=== PATIENT | male | born 1950 | race Caucasian/White ===

== ENCOUNTER 2016-12-17 09:46 | Emergency (ER) | payer OTHER ==
[2016-12-17 10:00] VITALS: BP 146/101; PULSE 78; TEMP 97.6; BMI 21.2
[2016-12-17] MEDS ORDERED: OXYCODONE/APAP 5/325MG COMBO TABLET PO ONE (10:29)
--- NOTE | 2016-12-17 10:36 | PDOC ---
History of Present Illness - General Chief Complaint: Pain Stated Complaint: PAIN TO EXTREMITIES, BACK Time Seen by Provider: 12/17/16 10:01 History Source: Patient Exam Limitations: No Limitations - History of Present Illness Initial Comments: 12/17/16 14:00 CHIEF COMPLAINT: Shingles, pain HISTORY OF PRESENT ILLNESS: Patient is a 66-year-old male states that he was diagnosed with shingles to right forearm placed on valacyclovir and meloxicam however patient still with pain. Denies any fever, no chest pain or shortness of breath. 12/17/16 14:03 Severity: moderate Associated Symptoms: denies: fever/chills Past History - Past Medical History Allergies/Adverse Reactions: Allergies Allergy/AdvReac Type Severity Reaction Status Date / Time aspirin Allergy Verified 12/17/16 09:50 Home Medications: Ambulatory Orders Amlodipine Besylate [Norvasc -] 5 mg PO DAILY 06/26/16 Aspirin [ASA -] 81 mg PO DAILY 06/26/16 Clopidogrel Bisulfate [Plavix -] 75 mg PO DAILY 06/26/16 Diphenhydramine [Benadryl Capsule -] 50 mg PO DAILY PRN #20 capsule 06/26/16 Metoprolol Tartrate 25 mg PO DAILY 06/26/16 Prednisone [Deltasone -] 20 mg PO UTDICT #10 tablet 06/26/16 Oxycodone HCl/Acetaminophen [Percocet 5-325 mg Tablet] 1 - 2 tab PO Q6H #32 tab MDD 8 12/17/16 Valacyclovir HCl [Valtrex -] 1,000 mg PO TID 12/17/16 Cardiac Disorders: Yes HTN: Yes Hypercholesterolemia: Yes Other medical history: SHINGLES 12/2016 - Surgical History Cardiac Surgery: Yes ([facility]) - Psycho/Social/Smoking Cessation Hx Suicidal Ideation: No Smoking History: Never smoked Hx Alcohol Use: Yes (SOCIAL) Drug/Substance Use Hx: No Substance Use Type: None Hx Substance Use Treatment: No Review of Systems - Review of Systems Constitutional: No: Symptoms Reported HEENTM: No: Symptoms Reported Respiratory: No: Symptoms reported Cardiac (ROS): No: Symptoms Reported ABD/GI: No: Symptoms Reported : No: Symptoms Reported Musculoskeletal: No: Joint Pain, Joint Swelling Integumentary: Yes: Rash (vesicular painful rash to right forearm, dermatomal) Neurological: No: Symptoms reported Hematologic/Lymphatic: No: Symptoms Reported All Other Systems: Reviewed and Negative *Physical Exam - Vital Signs Last Vital Signs Temp Pulse Resp BP Pulse Ox 97.6 F 78 20 146/101 100 12/17/16 09:47 12/17/16 09:47 12/17/16 09:47 12/17/16 09:47 12/17/16 09:47 - Physical Exam General Appearance: Yes: Appropriately Dressed. No: Apparent Distress Neck: negative: Tender lateral, Tender midline Respiratory/Chest: positive: Lungs Clear, Normal Breath Sounds. negative: Respiratory Distress, Accessory Muscle Use Cardiovascular: positive: Regular Rhythm, Regular Rate Lymphatic: negative: Adenopathy Musculoskeletal: positive: Normal Inspection. negative: Decreased Range of Motion Extremity: positive: Normal Capillary Refill, Erythema, Other (vesicular rash to right forearm in dermatomal pattern) Integumentary: positive: Rash Neurologic: positive: Alert, Normal Mood/Affect Medical Decision Making - Medical Decision Making 12/17/16 14:04 A/P: Patient with shingles, is on valacyclovir taking it appropriately, on meloxicam however states that pain is not resolved and increased, we will give Percocet while in emergency department and a Percocet prescription follow-up with PMD. Explained to patient that shingles is on a nerve path and can be very painful at times unable to take away pain 100% however weekend treat symptoms and help decrease pain level. He verbalized understanding.l *DC/Admit/Observation/Transfer Diagnosis at time of Disposition: Pain management Shingles Qualifiers: Herpes zoster complications: without complications Qualified Code(s): B02.9 - Zoster without complications - Discharge Dispostion Admit: No - Prescriptions Prescriptions: Oxycodone HCl/Acetaminophen [Percocet 5-325 mg Tablet] 1 - 2 tab PO Q6H #32 tab MDD 8 - Referrals Referrals: STAFF,NOT ON [Primary Care Provider] - - Patient Instructions Additional Instructions: Pain control Take valacyclovir as prescribed. Pain medication as ordered Follow up with PMD for evaluation if pain increased.
[2016-12-17] MEDS ORDERED: OXYCODONE/APAP 5/325MG COMBO TABLET ONE (10:37)
== END 2016-12-17 10:39 | disposition home or self-care (01) ==
LOC: JER 09:46 → JERFT 09:46
DX: B02.9 Zoster without complications (principal); I25.10 Atherosclerotic heart disease of native coronary artery without angina pectoris; I10 Essential (primary) hypertension; Z95.5 Presence of coronary angioplasty implant and graft
CPT/HCPCS: 99281-25

== ENCOUNTER 2020-11-18 12:14 | Emergency (ER) | payer OTHER ==
[2020-11-18 12:23] VITALS: BP 170/109; PULSE 79; TEMP 98.5; BMI 22.8
== END 2020-11-18 13:20 | disposition home or self-care (01) ==
LOC: JER 12:14
DX: R03.0 Elevated blood-pressure reading, without diagnosis of hypertension (principal)
CPT/HCPCS: 99281-25